=== PATIENT | female | born 1960 | race Caucasian/White ===

== ENCOUNTER 2024-09-06 12:21 | Outpatient (OUT) | payer MEDICARE, SELFPAY | END 2024-09-06 12:22 | disposition home or self-care (01) | PROVIDERS: Visit Provider Orthopaedic Surgery | DX: Z01.818 Encounter for other preprocedural examination (principal); M65.341 Trigger finger, right ring finger ==

== ENCOUNTER 2024-09-06 12:34 | Outpatient (OUT) | payer MEDICARE, SELFPAY ==
--- NOTE | 2024-09-06 13:04 | ECG_ITS ---
The [facility] Test Date: 2024-09-06 Pat Name: CARMEN SHETTY Department: Room: - Gender: Female Network Program Manager: : [id number] Requested By: Ash Rodriguez Order Number: [id number] Reading MD: EDU CALLEJAS Measurements Intervals [place] Rate: 52 P: 29 TN: 224 QRS: -17 QRSD: 134 T: -14 QT: 454 QTc: 425 Interpretive Statements SINUS BRADYCARDIA WITH FIRST DEGREE AV BLOCK RIGHT BUNDLE BRANCH BLOCK [120+ ms QRS DURATION, UPRIGHT V1, 40+ ms S IN I/aVL/V4/V5/V6] VOLTAGE CRITERIA FOR LVH [MEETS CRITERIA IN ONE OF: R(aVL), S(V1), R(V5), R(V5/V6)+S(V1)] No previous ECG available for comparison Electronically Signed On 09-06-2024 20:18:13 EST by EDU CALLEJAS
== END 2024-09-06 12:35 | disposition home or self-care (01) ==
LOC: PST 12:35
PROVIDERS: Visit Provider Orthopaedic Surgery
DX: Z01.810 Encounter for preprocedural cardiovascular examination (principal); M65.312 Trigger thumb, left thumb
CPT/HCPCS: 93005